=== PATIENT | female | born 1990 | race Caucasian/White ===

== ENCOUNTER 2018-05-15 12:21 | Emergency (ER) | payer MEDICAID, OTHER ==
[~2018-05-15] VITALS: Ht 170.2 cm; Wt 78.5 kg
[2018-05-15 12:26] VITALS: BP 136/95
== END 2018-05-15 13:11 | disposition home or self-care (01) ==
LOC: ED 13:05
DX: H60.501 Unspecified acute noninfective otitis externa, right ear (principal)
CPT/HCPCS: 99283